=== PATIENT | female | born 1950 | race Caucasian/White ===

== ENCOUNTER 2023-05-31 12:54 | Outpatient (OUT) | payer MEDICARE, OTHER, SELFPAY ==
--- NOTE | 2023-05-31 12:59 | XR_ITS ---
The [address] [address] Patient Name: IVONNE YIP MRN: [id number] date: 1950 Sex: F Assigned Patient Location: [facility] Current Patient Location: [facility] Accession/Order Number: [id number] Exam Date: 05/31/2023 12:02 Report Date: 05/31/2023 13:42 At the request of: DIANA GRIER Procedure: XR shoulder LT min 2V PROCEDURE: XR shoulder LT min 2V HISTORY: Left shoulder pain rotator cuff disorder M67.912 COMPARISON: None. FINDINGS: BONES:No fracture, acute abnormality, or significant arthropathy. SOFT TISSUES:No visible soft tissue swelling. EFFUSION:None visible. OTHER: Negative. IMPRESSION: 1. No acute bone abnormality. 2. Minimal degenerative changes of the acromion clavicular joint and glenohumeral joint. Electronically authenticated by: CRYS NOE Date: 05/31/2023 13:42
== END 2023-05-31 12:55 | disposition home or self-care (01) ==
PROVIDERS: PCP Family Medicine; Visit Provider Family Medicine
DX: M25.512 Pain in left shoulder (principal); M75.102 Unspecified rotator cuff tear or rupture of left shoulder, not specified as traumatic; M19.012 Primary osteoarthritis, left shoulder
CPT/HCPCS: 73030

== ENCOUNTER 2023-08-20 09:44 | Outpatient (OUT) | payer MEDICARE, OTHER, SELFPAY ==
--- NOTE | 2023-08-20 09:45 | MR_ITS ---
[address] [address] Patient Name: IVONNE YIP MRN: [id number] date: 1950 Sex: F Assigned Patient Location: MRI Current Patient Location: MRI Accession/Order Number: [id number] Exam Date: 08/20/2023 09:56 Report Date: 08/20/2023 23:08 At the request of: DIANA GRIER Procedure: MR shoulder LT wo con EXAM: MR shoulder LT wo con HISTORY: Left shoulder pain COMPARISON: Left shoulder x-ray 05/31/2023 TECHNIQUE: Multiplanar, multi sequential MRI sequences were performed. FINDINGS: The acromioclavicular joint exhibits age-related changes, however, there is a moderate effusion. Reactive thickening with adjacent edema of the coracoacromial ligament (sagittal 13). The coracohumeral clavicular and coracohumeral ligaments are unremarkable. Small amount of edema within the subacromial-subdeltoid bursal space. No glenohumeral joint effusion, fracture, dislocation, subluxation or osseous lesion. The superficial subcutaneous soft tissues are free of edema, hematoma, mass or cyst. Questionable very mild interstitial edema of the supraspinatus and infraspinatus tendons. No tendon tears. Age-related cysts within the posterior aspect of the greater tuberosity. The subscapularis and teres minor tendons are grossly normal. No muscle edema, hematoma, atrophy or fatty infiltration. No avulsion of the biceps tendon long head from the supraglenoid tubercle or bicipital groove. The intra-articular fibers of the biceps tendon long head exhibit no discrete thickening, tear or edema. The biceps labral anchor is unremarkable. The glenoid labrum exhibits no discrete irregularity. The articular cartilage of the humeral head and glenoid exhibits no chondral or osteochondral irregularity. MR/MR shoulder LT wo con IMPRESSION: 1. Age-related acromioclavicular joint degenerative changes, however, moderate acromioclavicular joint effusion. 2. Questionable very mild tendinopathy of the supraspinatus and infraspinatus tendons with no tear. 3. Thickening and edema of the coracoacromial ligament ligament. 4. Mild reactive edema within the subacromial-subdeltoid bursal space. Electronically authenticated by: SILAS GOFF Date: 08/20/2023 23:08
== END 2023-08-20 09:45 | disposition home or self-care (01) ==
LOC: MRI 09:44
PROVIDERS: PCP Family Medicine; Visit Provider Family Medicine
DX: M67.912 Unspecified disorder of synovium and tendon, left shoulder (principal)
CPT/HCPCS: 73221